=== PATIENT | male | born 1960 | race Caucasian/White ===

== ENCOUNTER 2020-08-11 16:09 | Inpatient (IN) ==
[2020-08-11] MEDS ORDERED: Ipratropium/Albuterol Neb 3 ML IH ONE (16:30)
[2020-08-11] MEDS ORDERED: Dexamethasone 4 MG/ML VIAL IVP ONE (16:31)
[2020-08-11] MEDS ORDERED: Ipratropium/Albuterol Neb 3 ML ONE (16:53)
[2020-08-11 17:07] LABS: Basophils % 0.3 %; Eosinophils # 0.1 K/mcL (0.0-0.6); Eosinophils % 0.5 %; Hematocrit 35.5 % (37.5-50.1); Hemoglobin 11.6 g/dL (12.9-16.9); Immature Granulocytes % 0.8 % (0-4); Lymphocytes # 1.8 K/mcL (0.6-4.6); Lymphocytes % 12.3 %; Mean Corpuscular HGB Conc 32.7 g/dL (31.6-35.5); Mean Corpuscular Hemoglobin 33.6 pg (28.0-33.3); Mean Corpuscular Volume 102.9 fL (83.0-100.0); Monocytes # 0.7 K/mcL (0.0-1.3); Monocytes % 4.8 %; Neutrophils # 11.8 K/mcL (1.6-8.9); Platelet Count 445 K/mcL (140-400); Red Blood Count 3.45 M/mcL (4.19-5.50); Red Cell Distribution Width 13.6 % (11.5-14.5); Segmented Neutrophils % 81.3 %; White Blood Count 14.5 K/mcL (4.3-11.1)
[2020-08-11 17:29] LABS: BUN/Creatinine Ratio 17 (6-26); Blood Urea Nitrogen 25 mg/dL (6-20); Calcium 8.2 mg/dL (8.6-10.3); Carbon Dioxide 26 mEq/L (23-29); Chloride 91 mEq/L (98-107); Glucose 153 mg/dL (70-105); Osmolality,Calculated 279 (280-300); Potassium 3.1 mEq/L (3.5-5.1); Sodium 131 mEq/L (136-145); Troponin I < 0.03 ng/mL (< 0.04); eGFR For African Americans > 60 (> 60); eGFR For Non-African Americans 50 (> 60)
[2020-08-11] MEDS ORDERED: Isovue-370 500 ML BOTTLE IVP ONE (17:50)
[2020-08-11 17:56] LABS: Adenovirus Not Detected (Not Detect); Coronavirus 229E Not Detected (Not Detect); Coronavirus HKU1 Not Detected (Not Detect); Coronavirus NL63 Not Detected (Not Detect); Coronavirus OC43 Not Detected (Not Detect); Human Rhinovirus/Enterovirus DETECTED (Not Detect)
[2020-08-11 17:57] LABS: Bordetella Pertussis Not Detected (Not Detect); Chlamydophila pneumoniae Not Detected (Not Detect); Human Metapneumovirus Not Detected (Not Detect); Influenza A Subtype 2009 H1 Not Detected (Not Detect); Influenza B Not Detected (Not Detect); Mycoplasma pneumoniae Not Detected (Not Detect); Parainfluenza Virus 1 Not Detected (Not Detect); Parainfluenza Virus 2 Not Detected (Not Detect); Parainfluenza Virus 3 Not Detected (Not Detect); Parainfluenza Virus 4 Not Detected (Not Detect); Respiratory Syncytial Virus Not Detected (Not Detect); SARS-CoV-2 Not Detected (Not Detect)
[2020-08-11] MEDS ORDERED: MOM Conc 10 ML UD.LIQ PO PRN (19:07)
[2020-08-11] MEDS ORDERED: Ondansetron 4 MG/2 ML VIAL IVP PRN (19:07)
[2020-08-11] MEDS: 0.9 % Sodium Chloride 1,000 ML IVC ONE ×2 (19:07→19:23)
[2020-08-11] MEDS ORDERED: Naloxone 0.4 MG/ML INJ IVP PRN (19:07)
[2020-08-11 19:35] LABS: Magnesium 0.7 mg/dL (1.6-2.6)
[2020-08-11] MEDS ORDERED: Ipratropium/Albuterol Neb 3 ML IH PRN (20:57)
[2020-08-11] MEDS ORDERED: Potassium Chloride Elixir 20 MEQ/15 ML UDC PO ONE (21:06)
[2020-08-11] MEDS ORDERED: Calcium Gluconate 1gm/50mL 1 GM/50 ML BAG IVPB ONE (21:12)
[2020-08-11] MEDS ORDERED: Perflutren Lipid Microsphere 1.3 ML in 0.9 % Sodium Chloride 8.7 ML IVP PRN (21:13)
[2020-08-11] MEDS: Azithromycin 500 MG in 0.9 % Sodium Chloride 250 ML IVPB SCH (21:30)
[2020-08-11] MEDS: carvediloL 6.25 MG TABLET PO SCH (21:49)
[2020-08-11 21:55] LABS: Bilirubin,Urine Negative (Negative); Blood,Urine Negative (Negative); Clarity,Urine Clear (Clear); Color,Urine Yellow (Yellow); Glucose,Urine (UA) Normal (Normal); Ketones,Urine Negative (Negative); Leukocyte Esterase,Urine Negative (Negative); Nitrite,Urine Negative (Negative); Protein,Urine Trace mg/dL (Neg-Trace); Specific Gravity,Urine > 1.030 (1.010-1.025); Urobilinogen,Urine Normal (Normal)
[2020-08-11 22:04] LABS: Sodium, Urine 42.7 mEq/L
[2020-08-11 22:56] LABS: % Iron Saturation 90 % (20-55); Iron 135 mcg/dL (65-175); Transferrin 107 mg/dL (203-362)
[2020-08-11 23:14] LABS: Ferritin 711 ng/mL (20-250)
[2020-08-11 23:19] LABS: Folate 5.1 ng/mL (3.0-16.0)
[2020-08-11] MEDS ORDERED: 0.9 % Sodium Chloride 500 ML IVC ONE (23:36)
[2020-08-12] MEDS ORDERED: 0.9 % Sodium Chloride 1,000 ML IVC ONE (00:40)
[2020-08-12 02:16] LABS: Magnesium 1.6 mg/dL (1.6-2.6); Phosphorous 3.5 mg/dL (2.7-4.5)
[2020-08-12 02:49] LABS: Troponin I < 0.03 ng/mL (< 0.04)
[2020-08-12 03:01] LABS: Alanine Aminotransferase 6 Units/L (7-52); Albumin 2.7 g/dL (3.5-5.7); Albumin/Globulin Ratio 1.1 (1.1-2.2); Alkaline Phosphatase 76 Units/L (34-104); Aspartate Amino Transferase 10 Units/L (13-39); BUN/Creatinine Ratio 19 (6-26); Bilirubin,Total 0.4 mg/dL (0.3-1.0); Blood Urea Nitrogen 22 mg/dL (6-20); Calcium 7.3 mg/dL (8.6-10.3); Carbon Dioxide 21 mEq/L (23-29); Chloride 103 mEq/L (98-107); Chol/HDL Ratio 3.6 (0-4.9); Cholesterol 75 mg/dL (< 200); Globulin 2.5 g/dL (2.4-3.5); Glucose 156 mg/dL (70-105); HDL Cholesterol 21 mg/dL (40-59); LDL Cholesterol,Calculated 36 mg/dL (< 100); Osmolality,Calculated 281 (280-300); Sodium 132 mEq/L (136-145); Total Protein 5.2 g/dL (6.4-8.9); Triglycerides 91 mg/dL (< 150); eGFR For African Americans > 60 (> 60); eGFR For Non-African Americans > 60 (> 60)
[2020-08-12 04:07] LABS: Basophils % 0.2 %; Hematocrit 26.5 % (37.5-50.1); Hemoglobin 8.6 g/dL (12.9-16.9); Immature Granulocytes % 0.9 % (0-4); Lymphocytes # 0.7 K/mcL (0.6-4.6); Lymphocytes % 10.5 %; Mean Corpuscular HGB Conc 32.5 g/dL (31.6-35.5); Mean Corpuscular Hemoglobin 33.6 pg (28.0-33.3); Mean Corpuscular Volume 103.5 fL (83.0-100.0); Mean Platelet Volume 9.6 fL (9.4-12.4); Monocytes # 0.1 K/mcL (0.0-1.3); Monocytes % 1.8 %; Neutrophils # 5.7 K/mcL (1.6-8.9); Platelet Count 238 K/mcL (140-400); Red Blood Count 2.56 M/mcL (4.19-5.50); Red Cell Distribution Width 13.7 % (11.5-14.5); Segmented Neutrophils % 86.6 %; White Blood Count 6.6 K/mcL (4.3-11.1)
[2020-08-12] MEDS: Benzonatate 100 MG CAPSULE PO PRN ×2 (04:07→21:05)
[2020-08-12] MEDS: 0.9 % Sodium Chloride 1,000 ML IVC SCH ×2 (04:09→16:45)
[2020-08-12] MEDS: Calcium Gluconate 1gm/50mL 1 GM/50 ML BAG IVPB SCH ×2 (04:10→05:10)
[2020-08-12] MEDS: Ipratropium/Albuterol Neb 3 ML IH SCH ×4 (04:30→22:23)
[2020-08-12 08:43] LABS: Hematocrit 24.9 % (37.5-50.1); Hemoglobin 8.1 g/dL (12.9-16.9); Mean Corpuscular HGB Conc 32.5 g/dL (31.6-35.5); Mean Corpuscular Hemoglobin 33.6 pg (28.0-33.3); Mean Corpuscular Volume 103.3 fL (83.0-100.0); Mean Platelet Volume 9.9 fL (9.4-12.4); Monocytes # 0.2 K/mcL (0.0-1.3); Platelet Count 251 K/mcL (140-400); Red Blood Count 2.41 M/mcL (4.19-5.50); Red Cell Distribution Width 13.8 % (11.5-14.5); White Blood Count 5.8 K/mcL (4.3-11.1)
[2020-08-12] MEDS: predniSONE 20 MG TABLET PO SCH (09:01)
[2020-08-12] MEDS: carvediloL 6.25 MG TABLET PO SCH ×2 (09:01→21:04)
[2020-08-12 09:05] LABS: Anisocytosis 1+ (Not Present); Lymphocytes # 1.2 K/mcL (0.6-4.6); Neutrophils # 4.3 K/mcL (1.6-8.9); Platelet Estimate Normal (Normal); Poikilocytosis 1+ (Not Present); Reactive Lymphocytes Present (Not Present)
[2020-08-12 10:40] LABS: Estimated Average Glucose 131 mg/dl; Hemoglobin A1C 6.2 %
[2020-08-12 14:40] LABS: Hemoglobin 8.3 g/dL (12.9-16.9)
[2020-08-12 19:05] LABS: Hematocrit 25.4 % (37.5-50.1); Hemoglobin 8.1 g/dL (12.9-16.9)
[2020-08-12] MEDS: Azithromycin 500 MG in 0.9 % Sodium Chloride 250 ML IVPB SCH (21:05)
[2020-08-12] MEDS: Budesonide/Formoterol 80/4.5 1 PUFF INH IH SCH (22:23)
[2020-08-12] MEDS: Acetaminophen 325 MG TABLET PO PRN (23:47)
[2020-08-12] MEDS: Loratadine 10 MG TABLET PO SCH (23:48)
[2020-08-13 02:12] LABS: Basophils % 0.1 %; Hematocrit 22.4 % (37.5-50.1); Hemoglobin 7.5 g/dL (12.9-16.9); Lymphocytes # 0.9 K/mcL (0.6-4.6); Lymphocytes % 10.6 %; Mean Corpuscular HGB Conc 33.5 g/dL (31.6-35.5); Mean Corpuscular Hemoglobin 34.2 pg (28.0-33.3); Mean Corpuscular Volume 102.3 fL (83.0-100.0); Mean Platelet Volume 9.8 fL (9.4-12.4); Monocytes # 0.5 K/mcL (0.0-1.3); Monocytes % 5.7 %; Neutrophils # 6.6 K/mcL (1.6-8.9); Platelet Count 236 K/mcL (140-400); Red Blood Count 2.19 M/mcL (4.19-5.50); Red Cell Distribution Width 13.6 % (11.5-14.5); Segmented Neutrophils % 82.6 %
[2020-08-13 02:30] LABS: BUN/Creatinine Ratio 22 (6-26); Blood Urea Nitrogen 22 mg/dL (6-20); Calcium 7.5 mg/dL (8.6-10.3); Carbon Dioxide 21 mEq/L (23-29); Chloride 101 mEq/L (98-107); Glucose 137 mg/dL (70-105); Osmolality,Calculated 273 (280-300); Potassium 3.9 mEq/L (3.5-5.1); Sodium 129 mEq/L (136-145); eGFR For African Americans > 60 (> 60); eGFR For Non-African Americans > 60 (> 60)
[2020-08-13] MEDS: Ipratropium/Albuterol Neb 3 ML IH SCH ×4 (03:34→22:00)
[2020-08-13] MEDS ORDERED: 0.9 % Sodium Chloride 250 ML IVC SCH (07:45)
[2020-08-13] MEDS: carvediloL 6.25 MG TABLET PO SCH ×2 (08:34→17:35)
[2020-08-13] MEDS: predniSONE 20 MG TABLET PO SCH (08:34)
[2020-08-13 08:38] LABS: Hematocrit 23.9 % (37.5-50.1); Hemoglobin 7.8 g/dL (12.9-16.9)
[2020-08-13] MEDS: Budesonide/Formoterol 80/4.5 1 PUFF INH IH SCH ×2 (10:06→22:00)
[2020-08-13 14:07] LABS: Hematocrit 27.4 % (37.5-50.1); Hemoglobin 8.8 g/dL (12.9-16.9)
[2020-08-13] MEDS: Pantoprazole 40 MG VIAL IVP SCH (17:35)
[2020-08-13] MEDS: Loratadine 10 MG TABLET PO SCH (17:35)
[2020-08-13 20:00] LABS: Hematocrit 27.7 % (37.5-50.1); Hemoglobin 9.2 g/dL (12.9-16.9)
[2020-08-13] MEDS: Azithromycin 500 MG in 0.9 % Sodium Chloride 250 ML IVPB SCH (20:27)
[2020-08-13] MEDS: Benzonatate 100 MG CAPSULE PO PRN (21:36)
[2020-08-13] MEDS: Acetaminophen 325 MG TABLET PO PRN (23:20)
[2020-08-14] MEDS: Ipratropium/Albuterol Neb 3 ML IH SCH ×4 (03:32→22:05)
[2020-08-14] MEDS: Pantoprazole 40 MG VIAL IVP SCH ×2 (05:29→17:08)
[2020-08-14 08:05] LABS: Basophils % 0.1 %; Hematocrit 27.8 % (37.5-50.1); Hemoglobin 9.2 g/dL (12.9-16.9); Immature Granulocytes % 1.2 % (0-4); Lymphocytes # 2.4 K/mcL (0.6-4.6); Lymphocytes % 20.5 %; Mean Corpuscular HGB Conc 33.1 g/dL (31.6-35.5); Mean Corpuscular Hemoglobin 32.3 pg (28.0-33.3); Mean Corpuscular Volume 97.5 fL (83.0-100.0); Mean Platelet Volume 9.6 fL (9.4-12.4); Monocytes # 0.9 K/mcL (0.0-1.3); Monocytes % 7.9 %; Neutrophils # 8.1 K/mcL (1.6-8.9); Nucleated Red Blood Cells 0.2 /100 WBC (0); Platelet Count 286 K/mcL (140-400); Red Blood Count 2.85 M/mcL (4.19-5.50); Red Cell Distribution Width 14.6 % (11.5-14.5); Segmented Neutrophils % 70.3 %; White Blood Count 11.5 K/mcL (4.3-11.1)
[2020-08-14 08:14] LABS: BUN/Creatinine Ratio 20 (6-26); Blood Urea Nitrogen 19 mg/dL (6-20); Calcium 7.8 mg/dL (8.6-10.3); Carbon Dioxide 24 mEq/L (23-29); Chloride 98 mEq/L (98-107); Glucose 103 mg/dL (70-105); Osmolality,Calculated 267 (280-300); Potassium 4.2 mEq/L (3.5-5.1); Sodium 127 mEq/L (136-145); eGFR For African Americans > 60 (> 60); eGFR For Non-African Americans > 60 (> 60)
[2020-08-14 08:59] LABS: Platelet Estimate Normal (Normal); Reactive Lymphocytes Present (Not Present)
[2020-08-14] MEDS: predniSONE 20 MG TABLET PO SCH (09:01)
[2020-08-14] MEDS: carvediloL 6.25 MG TABLET PO SCH ×2 (09:02→17:07)
[2020-08-14] MEDS: Budesonide/Formoterol 80/4.5 1 PUFF INH IH SCH ×2 (10:58→22:07)
[2020-08-14] MEDS: Loratadine 10 MG TABLET PO SCH (17:07)
[2020-08-14] MEDS: cefTRIAXone 1,000 MG in 0.9 % Sodium Chloride Mini Bag 100 ML IVPB SCH (20:42)
[2020-08-14] MEDS: Azithromycin 500 MG in 0.9 % Sodium Chloride 250 ML IVPB SCH (21:20)
[2020-08-15 04:19] LABS: Basophils % 0.1 %; Hematocrit 28.7 % (37.5-50.1); Hemoglobin 9.9 g/dL (12.9-16.9); Immature Granulocytes % 1.1 % (0-4); Lymphocytes # 1.7 K/mcL (0.6-4.6); Lymphocytes % 16.3 %; Mean Corpuscular HGB Conc 34.5 g/dL (31.6-35.5); Mean Corpuscular Hemoglobin 33.7 pg (28.0-33.3); Mean Corpuscular Volume 97.6 fL (83.0-100.0); Mean Platelet Volume 9.6 fL (9.4-12.4); Monocytes # 0.9 K/mcL (0.0-1.3); Monocytes % 8.7 %; Nucleated Red Blood Cells 0.2 /100 WBC (0); Platelet Count 268 K/mcL (140-400); Red Blood Count 2.94 M/mcL (4.19-5.50); Red Cell Distribution Width 14.2 % (11.5-14.5); Segmented Neutrophils % 73.8 %; White Blood Count 10.5 K/mcL (4.3-11.1)
[2020-08-15] MEDS: Ipratropium/Albuterol Neb 3 ML IH SCH ×4 (04:30→21:43)
[2020-08-15 04:34] LABS: BUN/Creatinine Ratio 22 (6-26); Blood Urea Nitrogen 19 mg/dL (6-20); Calcium 7.8 mg/dL (8.6-10.3); Carbon Dioxide 24 mEq/L (23-29); Chloride 94 mEq/L (98-107); Glucose 122 mg/dL (70-105); Osmolality,Calculated 260 (280-300); Potassium 4.2 mEq/L (3.5-5.1); Sodium 123 mEq/L (136-145); eGFR For African Americans > 60 (> 60); eGFR For Non-African Americans > 60 (> 60)
[2020-08-15 04:44] LABS: Neutrophils # 7.8 K/mcL (1.6-8.9)
[2020-08-15 05:10] LABS: Anisocytosis 1+ (Not Present); Platelet Estimate Normal (Normal); Reactive Lymphocytes Present (Not Present)
[2020-08-15] MEDS: Pantoprazole 40 MG VIAL IVP SCH ×2 (05:29→17:06)
[2020-08-15] MEDS: carvediloL 6.25 MG TABLET PO SCH ×2 (08:39→17:06)
[2020-08-15] MEDS: predniSONE 20 MG TABLET PO SCH (08:39)
[2020-08-15] MEDS ORDERED: Furosemide 40 MG/4 ML VIAL IVP ONE (11:43)
[2020-08-15] MEDS: Budesonide/Formoterol 80/4.5 1 PUFF INH IH SCH ×2 (11:56→21:43)
[2020-08-15] MEDS: Acetaminophen 325 MG TABLET PO PRN (12:40)
[2020-08-15] MEDS: MethylPREDNISolone 40 MG/ML VIAL IVP SCH ×2 (12:40→17:06)
[2020-08-15] MEDS: Loratadine 10 MG TABLET PO SCH (17:06)
[2020-08-15] MEDS ORDERED: Azithromycin 500 MG in 0.9 % Sodium Chloride 250 ML IVPB ONE (20:00)
[2020-08-15] MEDS: cefTRIAXone 1,000 MG in 0.9 % Sodium Chloride Mini Bag 100 ML IVPB SCH (20:30)
[2020-08-15] MEDS: cefTRIAXone 1,000 MG in Water for inj. (sterile) 10 ML IVP SCH (20:42)
[2020-08-16 02:10] LABS: Hematocrit 26.3 % (37.5-50.1); Hemoglobin 9.2 g/dL (12.9-16.9); Immature Granulocytes % 1.1 % (0-4); Lymphocytes # 0.6 K/mcL (0.6-4.6); Lymphocytes % 6.8 %; Mean Corpuscular Volume 94.3 fL (83.0-100.0); Mean Platelet Volume 9.7 fL (9.4-12.4); Monocytes # 0.3 K/mcL (0.0-1.3); Monocytes % 3.1 %; Neutrophils # 7.9 K/mcL (1.6-8.9); Platelet Count 199 K/mcL (140-400); Red Blood Count 2.79 M/mcL (4.19-5.50); Red Cell Distribution Width 13.9 % (11.5-14.5); White Blood Count 8.8 K/mcL (4.3-11.1)
[2020-08-16 02:32] LABS: BUN/Creatinine Ratio 20 (6-26); Blood Urea Nitrogen 19 mg/dL (6-20); Calcium 7.3 mg/dL (8.6-10.3); Carbon Dioxide 23 mEq/L (23-29); Chloride 93 mEq/L (98-107); Glucose 124 mg/dL (70-105); Osmolality,Calculated 262 (280-300); Potassium 3.9 mEq/L (3.5-5.1); Sodium 124 mEq/L (136-145); eGFR For African Americans > 60 (> 60); eGFR For Non-African Americans > 60 (> 60)
[2020-08-16 02:44] LABS: Thyroid Stimulating Hormone 0.399 mcIU/mL (0.340-5.600)
[2020-08-16] MEDS: Ipratropium/Albuterol Neb 3 ML IH SCH ×4 (03:43→22:46)
[2020-08-16] MEDS: MethylPREDNISolone 40 MG/ML VIAL IVP SCH ×2 (05:07→18:11)
[2020-08-16] MEDS: Pantoprazole 40 MG VIAL IVP SCH ×2 (05:07→18:11)
[2020-08-16] MEDS: carvediloL 6.25 MG TABLET PO SCH ×2 (08:57→18:11)
[2020-08-16] MEDS: Budesonide/Formoterol 80/4.5 1 PUFF INH IH SCH ×2 (10:35→22:47)
[2020-08-16] MEDS: Furosemide 20 MG/2 ML VIAL IVP SCH (14:32)
[2020-08-16] MEDS: Loratadine 10 MG TABLET PO SCH (18:11)
[2020-08-16] MEDS: Acetaminophen 325 MG TABLET PO PRN (20:23)
[2020-08-16] MEDS: cefTRIAXone 1,000 MG in Water for inj. (sterile) 10 ML IVP SCH (20:23)
[2020-08-16] MEDS: Melatonin 3 MG TABLET PO SCH (23:17)
[2020-08-17 02:56] LABS: Basophils % 0.1 %; Hematocrit 25.3 % (37.5-50.1); Hemoglobin 8.8 g/dL (12.9-16.9); Immature Granulocytes % 0.8 % (0-4); Lymphocytes # 0.6 K/mcL (0.6-4.6); Lymphocytes % 4.4 %; Mean Corpuscular HGB Conc 34.8 g/dL (31.6-35.5); Mean Corpuscular Hemoglobin 33.1 pg (28.0-33.3); Mean Corpuscular Volume 95.1 fL (83.0-100.0); Mean Platelet Volume 10.2 fL (9.4-12.4); Monocytes # 0.6 K/mcL (0.0-1.3); Monocytes % 4.3 %; Platelet Count 201 K/mcL (140-400); Red Blood Count 2.66 M/mcL (4.19-5.50); Red Cell Distribution Width 13.7 % (11.5-14.5); Segmented Neutrophils % 90.4 %
[2020-08-17 02:58] LABS: White Blood Count 13.3 K/mcL (4.3-11.1)
[2020-08-17 03:09] LABS: BUN/Creatinine Ratio 19 (6-26); Blood Urea Nitrogen 20 mg/dL (6-20); Calcium 7.6 mg/dL (8.6-10.3); Carbon Dioxide 23 mEq/L (23-29); Chloride 92 mEq/L (98-107); Glucose 135 mg/dL (70-105); Osmolality,Calculated 263 (280-300); Potassium 3.9 mEq/L (3.5-5.1); Sodium 124 mEq/L (136-145); eGFR For African Americans > 60 (> 60); eGFR For Non-African Americans > 60 (> 60)
[2020-08-17] MEDS: Ipratropium/Albuterol Neb 3 ML IH SCH ×4 (04:18→22:36)
[2020-08-17] MEDS: Acetaminophen 325 MG TABLET PO PRN ×2 (05:35→22:56)
[2020-08-17] MEDS: MethylPREDNISolone 40 MG/ML VIAL IVP SCH ×2 (05:35→17:32)
[2020-08-17] MEDS: Pantoprazole 40 MG VIAL IVP SCH ×2 (05:35→17:31)
[2020-08-17] MEDS: carvediloL 6.25 MG TABLET PO SCH ×2 (08:54→17:31)
[2020-08-17] MEDS: Furosemide 20 MG/2 ML VIAL IVP SCH (08:54)
[2020-08-17] MEDS: Budesonide/Formoterol 80/4.5 1 PUFF INH IH SCH ×2 (10:35→22:36)
[2020-08-17] MEDS: Loratadine 10 MG TABLET PO SCH (17:30)
[2020-08-17] MEDS: cefTRIAXone 1,000 MG in Water for inj. (sterile) 10 ML IVP SCH (19:49)
[2020-08-17] MEDS: Melatonin 3 MG TABLET PO SCH (19:50)
[2020-08-18] MEDS: Ipratropium/Albuterol Neb 3 ML IH SCH ×4 (03:31→22:04)
[2020-08-18 04:56] LABS: Basophils % 0.1 %; Hematocrit 29.5 % (37.5-50.1); Hemoglobin 10.1 g/dL (12.9-16.9); Immature Granulocytes % 0.6 % (0-4); Lymphocytes # 0.7 K/mcL (0.6-4.6); Lymphocytes % 4.7 %; Mean Corpuscular HGB Conc 34.2 g/dL (31.6-35.5); Mean Corpuscular Hemoglobin 33.4 pg (28.0-33.3); Mean Corpuscular Volume 97.7 fL (83.0-100.0); Mean Platelet Volume 10.6 fL (9.4-12.4); Monocytes # 0.9 K/mcL (0.0-1.3); Monocytes % 6.6 %; Neutrophils # 12.5 K/mcL (1.6-8.9); Nucleated Red Blood Cells 0.1 /100 WBC (0); Platelet Count 231 K/mcL (140-400); Red Blood Count 3.02 M/mcL (4.19-5.50); Red Cell Distribution Width 13.9 % (11.5-14.5); White Blood Count 14.2 K/mcL (4.3-11.1)
[2020-08-18 05:12] LABS: BUN/Creatinine Ratio 19 (6-26); Blood Urea Nitrogen 21 mg/dL (6-20); Calcium 7.5 mg/dL (8.6-10.3); Carbon Dioxide 25 mEq/L (23-29); Chloride 90 mEq/L (98-107); Glucose 145 mg/dL (70-105); Osmolality,Calculated 266 (280-300); Potassium 3.6 mEq/L (3.5-5.1); Sodium 125 mEq/L (136-145); eGFR For African Americans > 60 (> 60); eGFR For Non-African Americans > 60 (> 60)
[2020-08-18] MEDS: Pantoprazole 40 MG VIAL IVP SCH (05:57)
[2020-08-18] MEDS: MethylPREDNISolone 40 MG/ML VIAL IVP SCH ×2 (05:57→17:27)
[2020-08-18] MEDS: Acetaminophen 325 MG TABLET PO PRN (05:57)
[2020-08-18] MEDS: Furosemide 20 MG/2 ML VIAL IVP SCH (09:40)
[2020-08-18] MEDS: carvediloL 6.25 MG TABLET PO SCH ×2 (09:40→17:27)
[2020-08-18] MEDS: Budesonide/Formoterol 80/4.5 1 PUFF INH IH SCH ×2 (10:35→22:04)
[2020-08-18] MEDS: Loratadine 10 MG TABLET PO SCH (17:27)
[2020-08-18] MEDS: cefTRIAXone 1,000 MG in Water for inj. (sterile) 10 ML IVP SCH (20:42)
[2020-08-18] MEDS: Melatonin 3 MG TABLET PO SCH (20:45)
[2020-08-19] MEDS: Acetaminophen 325 MG TABLET PO PRN ×2 (03:30→22:10)
[2020-08-19] MEDS: Ipratropium/Albuterol Neb 3 ML IH SCH ×4 (03:52→22:34)
[2020-08-19 04:11] LABS: Basophils % 0.1 %; Hematocrit 28.7 % (37.5-50.1); Hemoglobin 9.8 g/dL (12.9-16.9); Lymphocytes # 0.8 K/mcL (0.6-4.6); Lymphocytes % 6.6 %; Mean Corpuscular HGB Conc 34.1 g/dL (31.6-35.5); Mean Corpuscular Hemoglobin 33.4 pg (28.0-33.3); Mean Platelet Volume 10.3 fL (9.4-12.4); Monocytes # 0.8 K/mcL (0.0-1.3); Monocytes % 6.7 %; Neutrophils # 10.7 K/mcL (1.6-8.9); Platelet Count 246 K/mcL (140-400); Red Blood Count 2.93 M/mcL (4.19-5.50); Red Cell Distribution Width 14.3 % (11.5-14.5); Segmented Neutrophils % 85.6 %; White Blood Count 12.5 K/mcL (4.3-11.1)
[2020-08-19 04:32] LABS: BUN/Creatinine Ratio 22 (6-26); Blood Urea Nitrogen 22 mg/dL (6-20); Calcium 7.7 mg/dL (8.6-10.3); Carbon Dioxide 27 mEq/L (23-29); Chloride 89 mEq/L (98-107); Glucose 137 mg/dL (70-105); Osmolality,Calculated 265 (280-300); Sodium 125 mEq/L (136-145); eGFR For African Americans > 60 (> 60); eGFR For Non-African Americans > 60 (> 60)
[2020-08-19] MEDS: MethylPREDNISolone 40 MG/ML VIAL IVP SCH (06:04)
[2020-08-19] MEDS: carvediloL 6.25 MG TABLET PO SCH ×2 (08:59→17:39)
[2020-08-19] MEDS: Budesonide/Formoterol 80/4.5 1 PUFF INH IH SCH ×2 (09:19→22:34)
[2020-08-19] MEDS: Simethicone 80 MG TAB.CHEW PO PRN (13:58)
[2020-08-19] MEDS: Psyllium 1 PACKET POWD.PACK PO SCH (15:46)
[2020-08-19] MEDS: Loratadine 10 MG TABLET PO SCH (17:39)
[2020-08-19] MEDS: cefTRIAXone 1,000 MG in Water for inj. (sterile) 10 ML IVP SCH (19:38)
[2020-08-19] MEDS: Melatonin 3 MG TABLET PO SCH (22:10)
[2020-08-20 01:34] LABS: Basophils % 0.2 %; Eosinophils % 0.1 %; Hematocrit 27.6 % (37.5-50.1); Hemoglobin 9.4 g/dL (12.9-16.9); Lymphocytes # 1.3 K/mcL (0.6-4.6); Lymphocytes % 10.9 %; Mean Corpuscular HGB Conc 34.1 g/dL (31.6-35.5); Mean Corpuscular Hemoglobin 32.8 pg (28.0-33.3); Mean Corpuscular Volume 96.2 fL (83.0-100.0); Mean Platelet Volume 10.2 fL (9.4-12.4); Monocytes % 8.4 %; Neutrophils # 9.2 K/mcL (1.6-8.9); Platelet Count 247 K/mcL (140-400); Red Blood Count 2.87 M/mcL (4.19-5.50); Red Cell Distribution Width 14.3 % (11.5-14.5); Segmented Neutrophils % 79.4 %; White Blood Count 11.6 K/mcL (4.3-11.1)
[2020-08-20 02:04] LABS: BUN/Creatinine Ratio 28 (6-26); Blood Urea Nitrogen 24 mg/dL (6-20); Calcium 7.1 mg/dL (8.6-10.3); Carbon Dioxide 25 mEq/L (23-29); Chloride 94 mEq/L (98-107); Glucose 91 mg/dL (70-105); Osmolality,Calculated 268 (280-300); Sodium 127 mEq/L (136-145); eGFR For African Americans > 60 (> 60); eGFR For Non-African Americans > 60 (> 60)
[2020-08-20] MEDS: Ipratropium/Albuterol Neb 3 ML IH SCH ×4 (04:05→21:58)
[2020-08-20] MEDS: MethylPREDNISolone 40 MG/ML VIAL IVP SCH (09:15)
[2020-08-20] MEDS: carvediloL 6.25 MG TABLET PO SCH ×2 (09:17→18:14)
[2020-08-20] MEDS: Psyllium 1 PACKET POWD.PACK PO SCH (09:17)
[2020-08-20] MEDS: Budesonide/Formoterol 80/4.5 1 PUFF INH IH SCH ×2 (10:54→21:58)
[2020-08-20] MEDS: Loratadine 10 MG TABLET PO SCH (18:14)
[2020-08-20] MEDS: Melatonin 3 MG TABLET PO SCH ×2 (19:49→19:59)
[2020-08-20] MEDS: cefTRIAXone 1,000 MG in Water for inj. (sterile) 10 ML IVP SCH (19:49)
[2020-08-21] MEDS: Ipratropium/Albuterol Neb 3 ML IH SCH ×4 (03:50→22:25)
[2020-08-21] MEDS: Simethicone 80 MG TAB.CHEW PO PRN (03:53)
[2020-08-21 04:37] LABS: Basophils % 0.1 %; Eosinophils % 0.1 %; Hematocrit 29.6 % (37.5-50.1); Hemoglobin 9.7 g/dL (12.9-16.9); Immature Granulocytes % 0.9 % (0-4); Lymphocytes # 1.3 K/mcL (0.6-4.6); Mean Corpuscular HGB Conc 32.8 g/dL (31.6-35.5); Mean Corpuscular Hemoglobin 32.1 pg (28.0-33.3); Mean Platelet Volume 10.5 fL (9.4-12.4); Monocytes # 1.3 K/mcL (0.0-1.3); Monocytes % 7.8 %; Neutrophils # 13.4 K/mcL (1.6-8.9); Platelet Count 280 K/mcL (140-400); Red Blood Count 3.02 M/mcL (4.19-5.50); Red Cell Distribution Width 14.4 % (11.5-14.5); Segmented Neutrophils % 83.1 %; White Blood Count 16.1 K/mcL (4.3-11.1)
[2020-08-21 04:54] LABS: BUN/Creatinine Ratio 25 (6-26); Blood Urea Nitrogen 25 mg/dL (6-20); Calcium 7.4 mg/dL (8.6-10.3); Carbon Dioxide 26 mEq/L (23-29); Chloride 94 mEq/L (98-107); Glucose 91 mg/dL (70-105); Osmolality,Calculated 268 (280-300); Potassium 4.5 mEq/L (3.5-5.1); Sodium 127 mEq/L (136-145); eGFR For African Americans > 60 (> 60); eGFR For Non-African Americans > 60 (> 60)
[2020-08-21] MEDS ORDERED: Tolvaptan 15 MG TABLET PO ONE (07:39)
[2020-08-21] MEDS: carvediloL 6.25 MG TABLET PO SCH ×2 (08:50→17:41)
[2020-08-21] MEDS: MethylPREDNISolone 40 MG/ML VIAL IVP SCH (08:50)
[2020-08-21] MEDS: Psyllium 1 PACKET POWD.PACK PO SCH (08:50)
[2020-08-21] MEDS: Budesonide/Formoterol 80/4.5 1 PUFF INH IH SCH ×2 (10:54→22:25)
[2020-08-21] MEDS: Loratadine 10 MG TABLET PO SCH (17:41)
[2020-08-21] MEDS: Melatonin 3 MG TABLET PO SCH (20:53)
[2020-08-21] MEDS: cefTRIAXone 1,000 MG in Water for inj. (sterile) 10 ML IVP SCH (20:53)
[2020-08-22] MEDS: Acetaminophen 325 MG TABLET PO PRN ×3 (02:06→16:22)
[2020-08-22] MEDS: Simethicone 80 MG TAB.CHEW PO PRN (02:06)
[2020-08-22] MEDS: Ipratropium/Albuterol Neb 3 ML IH SCH ×4 (03:45→21:54)
[2020-08-22 07:25] LABS: Basophils % 0.1 %; Eosinophils # 0.1 K/mcL (0.0-0.6); Eosinophils % 0.4 %; Hematocrit 25.5 % (37.5-50.1); Hemoglobin 8.5 g/dL (12.9-16.9); Immature Granulocytes % 0.8 % (0-4); Lymphocytes # 1.1 K/mcL (0.6-4.6); Mean Corpuscular HGB Conc 33.3 g/dL (31.6-35.5); Mean Corpuscular Hemoglobin 32.9 pg (28.0-33.3); Mean Corpuscular Volume 98.8 fL (83.0-100.0); Mean Platelet Volume 10.3 fL (9.4-12.4); Monocytes # 0.9 K/mcL (0.0-1.3); Monocytes % 7.2 %; Neutrophils # 10.4 K/mcL (1.6-8.9); Platelet Count 226 K/mcL (140-400); Red Blood Count 2.58 M/mcL (4.19-5.50); Red Cell Distribution Width 14.6 % (11.5-14.5); Segmented Neutrophils % 82.5 %; White Blood Count 12.6 K/mcL (4.3-11.1)
[2020-08-22 08:06] LABS: Sodium 134 mEq/L (136-145)
[2020-08-22 08:07] LABS: BUN/Creatinine Ratio 23 (6-26); Blood Urea Nitrogen 23 mg/dL (6-20); Calcium 7.5 mg/dL (8.6-10.3); Carbon Dioxide 24 mEq/L (23-29); Chloride 103 mEq/L (98-107); Glucose 93 mg/dL (70-105); Osmolality,Calculated 281 (280-300); eGFR For African Americans > 60 (> 60); eGFR For Non-African Americans > 60 (> 60)
[2020-08-22] MEDS: Psyllium 1 PACKET POWD.PACK PO SCH (09:52)
[2020-08-22] MEDS: predniSONE 20 MG TABLET PO SCH (09:52)
[2020-08-22] MEDS: carvediloL 6.25 MG TABLET PO SCH ×2 (09:52→18:22)
[2020-08-22] MEDS: Budesonide/Formoterol 80/4.5 1 PUFF INH IH SCH ×2 (10:35→21:53)
[2020-08-22] MEDS: Loratadine 10 MG TABLET PO SCH (18:22)
[2020-08-22] MEDS: Melatonin 3 MG TABLET PO SCH (20:00)
[2020-08-23] MEDS: Acetaminophen 325 MG TABLET PO PRN (00:52)
[2020-08-23] MEDS: Simethicone 80 MG TAB.CHEW PO PRN (00:52)
[2020-08-23] MEDS: Ipratropium/Albuterol Neb 3 ML IH SCH ×4 (04:04→22:36)
[2020-08-23 05:56] LABS: Basophils % 0.1 %; Eosinophils # 0.1 K/mcL (0.0-0.6); Eosinophils % 0.4 %; Hematocrit 28.4 % (37.5-50.1); Hemoglobin 9.3 g/dL (12.9-16.9); Immature Granulocytes % 1.1 % (0-4); Lymphocytes % 8.2 %; Mean Corpuscular HGB Conc 32.7 g/dL (31.6-35.5); Mean Corpuscular Volume 100.7 fL (83.0-100.0); Mean Platelet Volume 10.2 fL (9.4-12.4); Monocytes # 0.9 K/mcL (0.0-1.3); Monocytes % 7.5 %; Neutrophils # 9.8 K/mcL (1.6-8.9); Platelet Count 266 K/mcL (140-400); Red Blood Count 2.82 M/mcL (4.19-5.50); Segmented Neutrophils % 82.7 %; White Blood Count 11.9 K/mcL (4.3-11.1)
[2020-08-23 06:15] LABS: BUN/Creatinine Ratio 24 (6-26); Blood Urea Nitrogen 23 mg/dL (6-20); Calcium 7.6 mg/dL (8.6-10.3); Carbon Dioxide 26 mEq/L (23-29); Chloride 101 mEq/L (98-107); Glucose 90 mg/dL (70-105); Osmolality,Calculated 277 (280-300); Potassium 4.1 mEq/L (3.5-5.1); Sodium 132 mEq/L (136-145); eGFR For African Americans > 60 (> 60); eGFR For Non-African Americans > 60 (> 60)
[2020-08-23] MEDS: predniSONE 20 MG TABLET PO SCH (08:36)
[2020-08-23] MEDS: carvediloL 6.25 MG TABLET PO SCH ×2 (08:36→18:05)
[2020-08-23] MEDS: Psyllium 1 PACKET POWD.PACK PO SCH (08:36)
[2020-08-23] MEDS: Budesonide/Formoterol 80/4.5 1 PUFF INH IH SCH ×2 (10:17→22:36)
[2020-08-23] MEDS: Doxycycline 100 MG CAPSULE PO SCH ×2 (13:08→21:34)
[2020-08-23] MEDS: Loratadine 10 MG TABLET PO SCH (18:05)
[2020-08-23] MEDS: Melatonin 3 MG TABLET PO SCH (21:34)
[2020-08-24] MEDS: Ipratropium/Albuterol Neb 3 ML IH SCH ×4 (02:59→20:28)
[2020-08-24] MEDS: carvediloL 6.25 MG TABLET PO SCH ×2 (08:47→18:53)
[2020-08-24] MEDS: Doxycycline 100 MG CAPSULE PO SCH ×2 (08:47→20:10)
[2020-08-24] MEDS: Psyllium 1 PACKET POWD.PACK PO SCH (08:47)
[2020-08-24] MEDS: predniSONE 20 MG TABLET PO SCH (08:47)
[2020-08-24] MEDS: Budesonide/Formoterol 80/4.5 1 PUFF INH IH SCH ×2 (10:57→21:00)
[2020-08-24] MEDS: Loratadine 10 MG TABLET PO SCH (18:53)
[2020-08-24] MEDS: Melatonin 3 MG TABLET PO SCH (20:09)
[2020-08-25] MEDS: Acetaminophen 325 MG TABLET PO PRN (00:37)
[2020-08-25] MEDS: Ipratropium/Albuterol Neb 3 ML IH SCH ×4 (03:13→22:16)
[2020-08-25] MEDS: Doxycycline 100 MG CAPSULE PO SCH ×2 (10:10→20:20)
[2020-08-25] MEDS: Psyllium 1 PACKET POWD.PACK PO SCH (10:10)
[2020-08-25] MEDS: carvediloL 6.25 MG TABLET PO SCH ×2 (10:10→17:42)
[2020-08-25] MEDS: predniSONE 20 MG TABLET PO SCH (10:11)
[2020-08-25] MEDS: Budesonide/Formoterol 80/4.5 1 PUFF INH IH SCH ×2 (10:53→22:16)
[2020-08-25] MEDS: Loratadine 10 MG TABLET PO SCH (17:43)
[2020-08-25] MEDS: Melatonin 3 MG TABLET PO SCH (20:20)
[2020-08-26] MEDS: predniSONE 20 MG TABLET PO SCH ×2 (00:53→10:00)
[2020-08-26] MEDS: Ipratropium/Albuterol Neb 3 ML IH SCH ×4 (04:24→21:51)
[2020-08-26 04:47] LABS: Hematocrit 27.9 % (37.5-50.1); Hemoglobin 9.2 g/dL (12.9-16.9); Mean Corpuscular Hemoglobin 33.8 pg (28.0-33.3); Mean Corpuscular Volume 102.6 fL (83.0-100.0); Mean Platelet Volume 10.5 fL (9.4-12.4); Platelet Count 262 K/mcL (140-400); Red Blood Count 2.72 M/mcL (4.19-5.50); Red Cell Distribution Width 16.1 % (11.5-14.5); White Blood Count 9.8 K/mcL (4.3-11.1)
[2020-08-26 05:02] LABS: BUN/Creatinine Ratio 22 (6-26); Blood Urea Nitrogen 21 mg/dL (6-20); Calcium 7.7 mg/dL (8.6-10.3); Carbon Dioxide 26 mEq/L (23-29); Chloride 105 mEq/L (98-107); Glucose 88 mg/dL (70-105); Magnesium 0.8 mg/dL (1.6-2.6); Osmolality,Calculated 288 (280-300); Phosphorous 4.4 mg/dL (2.7-4.5); Potassium 4.3 mEq/L (3.5-5.1); Sodium 138 mEq/L (136-145); eGFR For African Americans > 60 (> 60); eGFR For Non-African Americans > 60 (> 60)
[2020-08-26] MEDS: Doxycycline 100 MG CAPSULE PO SCH ×2 (10:00→19:51)
[2020-08-26] MEDS: carvediloL 6.25 MG TABLET PO SCH ×2 (10:00→16:55)
[2020-08-26] MEDS: Psyllium 1 PACKET POWD.PACK PO SCH (10:00)
[2020-08-26] MEDS: Budesonide/Formoterol 80/4.5 1 PUFF INH IH SCH ×2 (10:11→21:51)
[2020-08-26] MEDS: Loratadine 10 MG TABLET PO SCH (16:57)
[2020-08-26] MEDS: Melatonin 3 MG TABLET PO SCH (19:51)
[2020-08-27] MEDS: Acetaminophen 325 MG TABLET PO PRN (01:11)
[2020-08-27] MEDS: Ipratropium/Albuterol Neb 3 ML IH SCH ×3 (04:05→15:55)
[2020-08-27] MEDS: predniSONE 20 MG TABLET PO SCH (09:43)
[2020-08-27] MEDS: carvediloL 6.25 MG TABLET PO SCH ×2 (09:43→17:13)
[2020-08-27] MEDS: Doxycycline 100 MG CAPSULE PO SCH (09:44)
[2020-08-27] MEDS: Psyllium 1 PACKET POWD.PACK PO SCH (09:44)
[2020-08-27] MEDS: Budesonide/Formoterol 80/4.5 1 PUFF INH IH SCH (10:42)
[2020-08-27 17:12] VITALS: BP 114/74
[2020-08-27] MEDS: Loratadine 10 MG TABLET PO SCH (17:13)
[2020-08-27 17:30] LABS: Adenovirus Not Detected (Not Detect); Bordetella Pertussis Not Detected (Not Detect); Chlamydophila pneumoniae Not Detected (Not Detect); Coronavirus 229E Not Detected (Not Detect); Coronavirus HKU1 Not Detected (Not Detect); Coronavirus NL63 Not Detected (Not Detect); Coronavirus OC43 Not Detected (Not Detect); Human Metapneumovirus Not Detected (Not Detect); Human Rhinovirus/Enterovirus Not Detected (Not Detect); Influenza A Subtype 2009 H1 Not Detected (Not Detect); Influenza B Not Detected (Not Detect); Mycoplasma pneumoniae Not Detected (Not Detect); Parainfluenza Virus 1 Not Detected (Not Detect); Parainfluenza Virus 2 Not Detected (Not Detect); Parainfluenza Virus 3 Not Detected (Not Detect); Parainfluenza Virus 4 Not Detected (Not Detect); Respiratory Syncytial Virus Not Detected (Not Detect); SARS-CoV-2 Not Detected (Not Detect)
== END 2020-08-27 19:35 | disposition other institution (70) | DRG 177 ==
LOC: 2ANU 16:09 → EMEROOARM 16:09 → SUATTDRO 19:43 → 2ANU 20:08 → SUATTDRO 08-13 16:10
PROVIDERS: ADMIT Internal Medicine; ATTEND Internal Medicine